=== PATIENT | female | born 1955 | race Caucasian/White ===

== ENCOUNTER 2017-10-20 11:32 | Emergency (ER) | payer MEDICARE, OTHER ==
[2017-10-20] MEDS ORDERED: DIPH,PERTUSS(ACELL),TET VAC/PF 0.5 ML DISP.SYRIN IM ONE (12:13)
[2017-10-20] MEDS ORDERED: cefTRIAXone SODIUM 1 GM VIAL IM ONE (12:14)
[2017-10-20] MEDS ORDERED: NEOMYCIN SU/BACITRAC ZN/POLY 1 EACH OINT.PACK TP ONE (12:16)
[2017-10-20] MEDS ORDERED: Lidocaine 1% 5ml(IM or SUTURE)(PAIN CLINIC) IJ ONE (12:16)
--- NOTE | 2017-10-20 12:19 | ED Physician Documentation ---
Animal Bite - HISTORIAN Historian: patient - HPI Stated Complaint: dog bite Chief Complaint: Animal Bite Additional Information: pet dog has shots, got between dog and food Onset: just prior to arrival Where: home Animal: dog Appearance of Animal: appeared well Animal's Immunization Status: UTD Observation/ Capture of Animal: animal is known Context of Attack: "unprovoked" attack Severity of Injury: bitten Location of Injury: L upper extremity Associated Symptoms: none Further Comments: no - ROS CONST: none EYES/ENT: none CVS/RESP: none NEURO: none GI/: none MS/SKIN/LYMPH: other (left arm pain) - PAST HX Past History: other (anxiety, depression) Immunizations: tetanus Allergies/Adverse Reactions: Allergies Allergy/AdvReac Type Severity Reaction Status Date / Time No Known Allergies Allergy Unverified 10/20/17 11:46 Home Medications: Ambulatory Orders Medication Instructions Recorded Alprazolam [Xanax] 2 mg PO 10/20/17 Carbidopa/Levodopa [Carbidopa-Levo 10/20/17 25-250 mg Odt] PARoxetine HCL [Paxil] 10 mg PO QD 10/20/17 - SOCIAL HX Smoking History: non-smoker Alcohol Use: none Drug Use: none - FAMILY HX Family History: no significant history - VITAL SIGNS Vital Signs: Vital Signs Temp Pulse Resp BP Pulse Ox 97.7 F 92 H 14 146/72 99 10/20/17 11:32 10/20/17 12:53 10/20/17 12:53 10/20/17 12:53 10/20/17 12:53 - REVIEWED ASSESSMENTS Nursing Assessment Reviewed: Yes Vitals Reviewed: Yes Progress - Results/Orders Results/Orders: no testing ordered - Progress Progress: Pt. stable entire time in er. Left arm cleaned with soap and water, dry miriam and sterile bandage. Pt. given 1 gram Rocephin IM in ER and Adacel IM in ER. Critical Care Note - Critical Care Note Total Time (mins): 0 ED Results Lab/Radiology - Lab Results Lab Results: none taken - Radiology Radiology Impressions: none taken - Orders Orders: ED Orders Category Date Time Status Further Nursing Orders 1T Care 10/20/17 12:16 Active Diph,Pertuss(Acell),Tet Vac/Pf [Adacel] Med 10/20/17 12:13 Discontinued 0.5 ml IM .ONCE ONE Lidocaine 1% 5ml(IM or SUTURE) [Xylocaine] Med 10/20/17 12:16 Discontinued 50 mg IJ NOW ONE Neomycin Howard/Bacitrac Zn/Poly [Triple Antibiotic Med 10/20/17 12:16 Discontinued Ointment] 1 each TP NOW ONE cefTRIAXone SODIUM [Rocephin] Med 10/20/17 12:14 Discontinued 1 gm IM NOW ONE Animal Bite Physical Exam - Physical Exam General Appearance: alert, mild distress Skin: other (multiple skin punctures, nonbleeding) Neuro/Vascular/Tendon: no vascular compromise, oriented x3, sensation nml, CN's nml as tested, ROM nml Psych: mood/affect nml HEENT: atraumatic, SENG, eye lids/conjun uninjured, ENT nml external inspect Neck: uninjured, nml inspection Resp/CVS: chest non-tender, breath sounds nml, heart sounds nml, no resp. distress, lungs clear, reg. rate & rhythm Abdomen: uninjured,nml inspection Back: uninjured, nml inspection Extremities: uninjured, nml inspection Discharge Clincal Impression: Dog bite Qualifiers: Encounter type: initial encounter Qualified Code(s): W54.0XXA - Bitten by dog, initial encounter Referrals: Primary Doctor,No [Primary Care Provider] - 2 Days Comments: discharged with script for Augmentin 975 mg 1 p.o. bid #14 generic, no refill Condition: Stable Disposition: 01 HOME, SELF-CARE Decision to Admit: NO Decision Time: 12:19
[2017-10-20 12:55] VITALS: BP 146/72
== END 2017-10-20 12:53 | disposition home or self-care (01) ==
LOC: ED 11:32
DX: S41.152A Open bite of left upper arm, initial encounter (principal); W54.0XXA Bitten by dog, initial encounter; Y93.89 Activity, other specified; Z23 Encounter for immunization
CPT/HCPCS: 90471; 90715; 96372; 99283; J0696